=== PATIENT | male | born 1955 | race Caucasian/White ===

== ENCOUNTER 2020-11-08 21:14 | Inpatient (IN) | payer MEDICARE, OTHER ==
[~2020-11-08] VITALS: Ht 172.7 cm; Wt 69.9 kg
[2020-11-08] MEDS ORDERED: ACET-2154 PO (21:34)
[2020-11-08] MEDS ORDERED: IBUP-1955 PO (21:34)
[2020-11-08] MEDS ORDERED: MAG30ORA PO (21:34)
[2020-11-08] MEDS ORDERED: MAGN400O6 PO (21:34)
[2020-11-08] MEDS ORDERED: HYDR50CA PO (21:37)
[2020-11-08] MEDS ORDERED: LORA-258 PO (21:37)
[2020-11-08] MEDS ORDERED: DIPH25CA83 PO (21:37)
--- NOTE | 2020-11-08 21:50 | NUR ---
Patient brought in my EMS from living facility to be medically cleared by ER MD to be admitted to MHU.
--- NOTE | 2020-11-08 22:24 | NUR ---
Patient transferred to MHU in wheelchair at this time. Patient not fully alert and orienntated. All belongings accompanied patient and were documented on belongings list. Stable condition. Medically cleared by Dr. Rush.
[2020-11-08] MEDS ORDERED: ACETAMINOPHEN 325 MG TABLET PO PRN (22:30)
[2020-11-08] MEDS ORDERED: MAGNESIUM HYDROXIDE 30 ML LIQUID UDC PO PRN (22:30)
[2020-11-08] MEDS ORDERED: MAG HYDROX/AL HYDROX/SIMETH 30 ML LIQUID UDC PO PRN (22:30)
[2020-11-08 22:33] VITALS: BP 117/65
--- NOTE | 2020-11-08 23:26 | NUR ---
GPS ADMISSION: Patient is a 65 year old male, brought into the hospital by ambulance from [facility]. Patient states he is homeless. Per hold patient was found on the street by a pedestrian who believed he needed help and called for service. Patient has a history of schizophrenia and has not taken his medication and stated that he needs to go to a mental hospital. Upon face to face evaluation patient is unkept and anxious. Easily agitated and refused to be interviewed. This patient is hearing voices and is preoccupied by internal stimulation. Patient became angry with the staff when his belongings were inventoried. Clinical Admissions Manager offered patient food and a PRN medication but patient is refusing to take any medications. Oriented patient to environment and provided patient with the Advisement and Rights handbook. V.S are stable at this time. Continuing to monitor for safety of patient , staff and peers plus any behavior escalation.
[2020-11-09 07:30] VITALS: BP 110/61
--- NOTE | 2020-11-09 07:33 | NUR ---
Received patient in his room, appears to be disorganized having bizzare behavior , patient responding to internal stimuli, would raised his voice while talking , patient verbalizes " where is my clothes" they should here in my room every body stealing from me, patient on q 15 monitoring,
[2020-11-09 16:00] VITALS: BP 133/71
--- NOTE | 2020-11-09 17:46 | NUR ---
patient shouting and would raised his voice , responding to internal stimuli, patient having delusion , assisted with ADL, spoke with patients sister Mona asking for patients condition, , MD made aware and will follow up,
[2020-11-09 20:00] VITALS: BP 114/65
[2020-11-09] MEDS: TEMAZEPAM 7.5 MG CAPSULE PO PRN (22:08)
--- NOTE | 2020-11-10 02:28 | NUR ---
RECEIVED PATIENT IN BED TALKING TO HIMSELF AND RESPONDING TO INTERNAL STIMULI. WHEN ASKED IF HE HEARS VOICES HE SAID 'YES, BUT THEY ARE TOO MANY IN MY HEAD TO TELL YOU WHAT THEY SAY'. HE ALSO REFUSED HIS MEDS.HE APPEARS DISORGANIZED, IRRITABLE WHEN HIS DEMANDS ARE NOT MET, WITH THE BIZARRE BEHAVIOR OF COMBING HIS HAIR OVER AND OVER AGAIN. HE KEPT GOING BACK AND FORTH TO THE ACTIVITY ROOM WITH HIS CLOTHING IN HAND. HE WAS LATER GIVEN TAB RESTORIL 7.5MG AT 22:10 WITH GOOD EFFECT. SAFE ENVIRONMENT PROVIDED. WILL CONTINUE TO MONITOR.
--- NOTE | 2020-11-10 06:31 | NUR ---
HE SLEPT FOR ONLY 4:15 HOURS. KEPT GETTING OUT OF BED AND WALKING THE HALLWAY. HE HAS HAD A SHOWER.
[2020-11-10 07:30] VITALS: BP 131/69
[2020-11-10] MEDS: risperiDONE 0.5 MG TABLET PO SCH ×4 (08:51→22:22)
--- NOTE | 2020-11-10 09:00 | NUR ---
Pt refused to take his restoril. Explained to patient purpose and side effect of medication and recommendation of psychiatrist. Pt continues to refuse medications.
[2020-11-10 15:34] VITALS: BP 121/65
--- NOTE | 2020-11-10 16:16 | NUR ---
Pt talking to himself disorganize thoughts, difficulty redirecting patient. Pt pacing up and down hallway. pt able to calm down self after getting tired. Pt was seen by physical therapist today. Per Physical therapist pt is ok to be d/c coz pt is independent on ambulation.
[2020-11-10 20:04] VITALS: BP 119/68
[2020-11-10] MEDS: TEMAZEPAM 7.5 MG CAPSULE PO PRN (21:16)
--- NOTE | 2020-11-11 01:37 | NUR ---
Received patient in the room. Bedside area messy, patient disheveled and unkept. Infrastructure Security Architect offered patient the routine PM medications and the patient refused despite education and encouragement. Dr Jefferson came a while later, spoke with the patient and the patient agreed to take his medication. Infrastructure Security Architect noticed patient to be preoccupied with internal stimuli most of the night so far. Not sleeping well . Yelling at times to himself ,but redirectable so far.Continuing to monitor for safety , compliance and behavior escalation.
[2020-11-11 07:30] VITALS: BP 110/66
--- NOTE | 2020-11-11 08:00 | NUR ---
RECEIVED PT AWAKE, ALERT AND ORIENTEDX3. PT IN NO ACUTE DISTRESS. PT PLEASANT WHEN APPROACHED. SAFETY AND COMFORT PROVIDED. WILL CONTINUE TO MONITOR.
[2020-11-11] MEDS: risperiDONE 0.5 MG TABLET PO SCH ×2 (08:27→20:18)
--- NOTE | 2020-11-11 11:27 | NUR ---
KYLE Initial Discharge Plan: Patient is currently homeless and requires a SNF placement upon discharge. Patient's sister Mona ([phone]) is involved in the patient's care and is the patient's payee. Mona does not have DPOA, thought she stated she will be in the process of obtaining it in the near future. KYLE will continue to work with patient, family, and MD to ensure a safe and proper discharge plan.
--- NOTE | 2020-11-11 11:28 | NUR ---
KYLE Family Contact: KYLE spoke with patient's sister Mona ([phone]) and discussed treatment and discharge plan. Mona does not have DPOA however is involved in the patient's care. She would like SNF placement for the patient.
--- NOTE | 2020-11-11 11:33 | NUR ---
Firearms Report: Certified Hearing Instrument Dispenser completed and submitted a [employer] firearms report for 5150 grave disability certifications. A copy of report has been placed in patient chart.
--- NOTE | 2020-11-11 13:01 | NUR ---
[facility] Referral: KYLE faxed patient's referral packet to the following facilities for review and possible placement: [facility] ([phone]) attention to Abdifatah joshua ([phone]) attention to Hui Addendum: 11/11/20 at 1345 by [facility] Patient is accepted at [facility].
--- NOTE | 2020-11-11 14:47 | NUR ---
PT IN NO ACUTE DISTRESS. COMPLIANT WITH CARE. PRESCRIBED MEDICATION GIVEN AND PT TOLERATED IT WELL. SAFETY AND COMFORT PROVIDED. WILL ENDORSE TO INCOMING NURSE.
[2020-11-11 16:00] VITALS: BP 98/65
[2020-11-11 20:37] VITALS: BP 106/62
[2020-11-11] MEDS: TEMAZEPAM 7.5 MG CAPSULE PO PRN (22:39)
[2020-11-11] MEDS: LORAZEPAM 1 MG TABLET PO PRN (22:39)
--- NOTE | 2020-11-12 06:10 | NUR ---
Received Pt pacing the hallway, responding to internal stimuli and talking to himself unintelligibly. Pt grunts and grumbles, and is selectively mute when asked questions. Pt only speak in full sentences when he is asking for food or other items, then disengages and becomes guarded and suspicious. When not rambling, Pt appears to be thought blocking and internally preoccupied. Even though Pt took a shower, he is disheveled, unkempt, malodorous, and wears layers of dirty clothing. Had 2 verbal outbursts with another Pt, but was quickly de-escalated by staff, no other aggressive behavior. Too disorganized in thought process to contract for safety. Compliant with HS medications with prompting and encouragement. Pt was increasingly anxious and restless, Restoril 7.5mg with Ativan 1mg administered with good effect. VS stable, denied pain.
[2020-11-12 07:30] VITALS: BP 90/51
[2020-11-12] MEDS ORDERED: risperiDONE 1 MG TABLET PO SCH (09:00)
[2020-11-12] MEDS: risperiDONE 2 MG TABLET PO SCH ×2 (09:25→20:25)
[2020-11-12 15:14] VITALS: BP 113/64
[2020-11-12 20:19] VITALS: BP 98/58
--- NOTE | 2020-11-12 22:40 | NUR ---
PATIENT IS RECEIVED IN BED AWAKE.PATIENT IS ISOLATIVE/WITHDRAWN. PATIENT HAS BIZARRE AND DISHEVELLED APPEARANCE. PATIENT IS DISHEVELED AND UNKEMPT. PATIENT CONTINUES TO MUMBLE TO SELF AND RESPONDING TO INTERNAL STIMULI. THE PATIENT IS COMPLAINT WITH MEDICATION. NO AGGRESSIVE OR COMBATIVE BEHAVIOR NOTED. NO OUTBURST NOTED WILL REDIRECT. PATIENT REMAINS GUARDED WITH SUSPICIOUS AND PARANOIA NOTED. SAFE ENVIRONMENT PROVIDED AND CLUTTER FREE ENVIRONMENT. BED IN LOWEST POSITION AND BED LOCKED.
[2020-11-13] MEDS: TEMAZEPAM 7.5 MG CAPSULE PO PRN (02:04)
[2020-11-13 07:30] VITALS: BP 117/69
[2020-11-13] MEDS: risperiDONE 2 MG TABLET PO SCH ×2 (09:55→20:47)
[2020-11-13 16:07] VITALS: BP 105/64
[2020-11-13 21:13] VITALS: BP 128/58
[2020-11-13 21:15] VITALS: BP 110/66
--- NOTE | 2020-11-14 06:20 | NUR ---
Patient slept for about 3.15 hours.Continues to have rumbling speech, disorganized thoughts.kept getting out bed and walking the hallway.
[2020-11-14 07:30] VITALS: BP 103/49
[2020-11-14] MEDS: risperiDONE 1 MG TABLET PO SCH ×2 (08:51→20:26)
--- NOTE | 2020-11-14 13:15 | NUR ---
KYLE PC Hearing: Patient had 5250 probable cause hearing today and it was upheld for grave disability.
[2020-11-14 16:44] VITALS: BP 109/51
--- NOTE | 2020-11-14 17:00 | NUR ---
Gps/Double Bass Player- Had been in and out of the activity room, was informed he is being moved to onother room. resirectable, responding to internal stimuli, talking to himself , cooperative with staff.
[2020-11-14 20:00] VITALS: BP 126/61
--- NOTE | 2020-11-15 03:50 | NUR ---
AAO x3 Ambulating in the BR Needs attended. No acute distress. Patient `ambulates to the BR. Continent of bowel and bladder.
[2020-11-15 07:30] VITALS: BP 114/69
[2020-11-15] MEDS: risperiDONE 1 MG TABLET PO SCH ×2 (08:13→20:52)
--- NOTE | 2020-11-15 13:52 | NUR ---
Gps/Hospice Nurse Practitioner- Ate lunch in the dinning room , kept asking for food to eat, noted patient eating other pat's tray after he alredy ate his lunch tray. Discouraged from doing so.
--- NOTE | 2020-11-15 14:43 | NUR ---
SW Individual Therapy Note: SW met with patient to provide brief individual counseling to address patient's presenting problem of neglecting self-care. SW encouraged patient to participate in self-care, bathing, and grooming. Patient has been more visible on the unit and join group actives, however with limited interaction. SW encouraged patient to interact with peers and be more verbally expressive with his thoughts and feelings.
[2020-11-15 16:36] VITALS: BP 120/71
[2020-11-15 20:23] VITALS: BP 114/66
--- NOTE | 2020-11-15 21:42 | NUR ---
Received patient roaming around the unit. No s/s of acute distress noted at this time. Pt continues to rumble and able to make needs known. No agitation or disruptive behavior, responds to internal stimuli, redirectable. Will continue with plan of care.
[2020-11-15] MEDS: TEMAZEPAM 7.5 MG CAPSULE PO PRN (23:31)
--- NOTE | 2020-11-16 05:41 | NUR ---
Patient slept 1.45 hours. Compliant with sleeping aide medication. Pt continued to ramble to self and disorganized thoughts. Redirection attempted multiple times.
[2020-11-16 07:30] VITALS: BP 121/61
[2020-11-16] MEDS: risperiDONE 1 MG TABLET PO SCH ×2 (08:26→20:09)
--- NOTE | 2020-11-16 14:01 | NUR ---
GPS: Nursing Notes: Thought Disorder: Patient is awake and responding to his name, impaired judgment, verbal abusive toward staff and peers at times, loud and angry affect, gets easily irritable when redirected, poor anger management, poor impulse control, resistant with nursing care, threatening staff by shadow boxing in front of staff, unable to formulate a viable plan for self care, continue with treatment plan.
[2020-11-16 16:00] VITALS: BP 123/65
[2020-11-16] MEDS: LORAZEPAM 1 MG TABLET PO PRN (19:40)
[2020-11-16 20:22] VITALS: BP 102/50
[2020-11-16] MEDS: TEMAZEPAM 7.5 MG CAPSULE PO PRN (21:42)
[2020-11-17 07:30] VITALS: BP 111/75
[2020-11-17] MEDS: risperiDONE 1 MG TABLET PO SCH ×2 (08:19→20:10)
[2020-11-17 16:00] VITALS: BP 109/64
[2020-11-17] MEDS: LORAZEPAM 1 MG TABLET PO PRN (19:35)
[2020-11-17 20:09] VITALS: BP 104/62
--- NOTE | 2020-11-18 05:52 | NUR ---
Received Pt pacing the hallways, responding to internal stimuli. Pt mumbles to himself unintelligibly, but denies auditory hallucinations. Appears paranoid of others and does not interact with his peers. Pt speaks non-sensically, is a poor historian, and is unable to hold a meaningful conversation. Pt is compliant with his medications, but does need prompting at times. Poor insight into condition, and unable to verbalize a realistic plan for self care. Cooperative with staff direction, follows unit rules, but remains labile and internally preoccupied. Ativan 1mg administered for increased anxiety and Restoril 7.5mg given for restlessness and insomnia, both effective. VS stable, denies pain.
[2020-11-18 07:30] VITALS: BP 109/70
[2020-11-18] MEDS: risperiDONE 1 MG TABLET PO SCH ×2 (08:16→20:11)
--- NOTE | 2020-11-18 15:14 | NUR ---
SW Individual Therapy Note: SW met with patient to provide brief individual counseling to address patient's presenting problem of neglecting self-care. SW encouraged patient to participate in self-care, bathing, and grooming. Patient has been exhibiting some behavior issues such as agitation and verbally aggressive. Patient is selectively mute and not wanting to engage in a meaningful conversation at this time. SW encouraged patient to interact with peers and be more verbally expressive with his thoughts and feelings.
[2020-11-18 15:17] VITALS: BP 100/66
[2020-11-18] MEDS: LORAZEPAM 1 MG TABLET PO PRN (19:26)
[2020-11-18 20:00] VITALS: BP 100/54
--- NOTE | 2020-11-18 23:00 | NUR ---
Dr Jefferson came in to assess the Pt, and spoke with staff regarding Pt's treatment plan. Changes are as follows to Pt's medication protocol: Risperdal was discontinued, and Depakote 250mg tid, Haldol 5mg tid, Cogentin 1mg tid, and Klonopin 0.25mg tid to be started 11/19/20. Consent signed by Dr Jefferson and Charge Nurse, then faxed to pharmacy. Pt unable to sign due to ongoing psychosis and altered thought process.
[2020-11-19 07:30] VITALS: BP 115/70
[2020-11-19] MEDS: LORAZEPAM 1 MG TABLET PO PRN (08:31)
[2020-11-19] MEDS: BENZTROPINE MESYLATE 1 MG TABLET PO SCH ×3 (08:47→16:41)
[2020-11-19] MEDS: CLONAZEPAM 0.5 MG TABLET PO SCH ×3 (08:47→16:41)
[2020-11-19] MEDS: DIVALPROEX 250 MG TABLET.DR PO SCH ×3 (08:47→16:41)
[2020-11-19] MEDS ORDERED: HALOPERIDOL 5 MG TABLET PO SCH ×2 (09:00)
[2020-11-19] MEDS: FLUPHENAZINE HCL 5 MG TABLET PO SCH ×3 (09:19→20:41)
[2020-11-19 16:00] VITALS: BP 93/59
[2020-11-19 21:14] VITALS: BP 94/50
[2020-11-20 07:56] VITALS: BP 103/42
[2020-11-20] MEDS: BENZTROPINE MESYLATE 1 MG TABLET PO SCH ×3 (08:16→16:36)
[2020-11-20] MEDS: DIVALPROEX 250 MG TABLET.DR PO SCH ×3 (08:16→16:36)
[2020-11-20] MEDS: CLONAZEPAM 0.5 MG TABLET PO SCH ×3 (08:16→16:36)
[2020-11-20] MEDS: FLUPHENAZINE HCL 5 MG TABLET PO SCH ×3 (08:16→20:32)
[2020-11-20] MEDS: LORAZEPAM 1 MG TABLET PO PRN ×2 (13:14→21:34)
--- NOTE | 2020-11-20 15:04 | NUR ---
patient is anxious, restless, continuously pacing in the hallway, and has minimal interaction with staff. patient appears bizarre, unkempt, and disheveled. he is noted to be heavily RTIS. he speaks loudly to himself and unknown others, noted to also be occasionally yelling and screaming, cursing and becoming easily agitated. patient is redirectable and requires frequent reality orientation. patient provided with education about impulse control and maintaining his safety and the safety of others. patient is adherent with medication, no adverse reaction noted. patient is also noted to be hoarding trash, becomes very angry when staff attempts to throw away his trash. patient provided with constant redirection and reality orientation. encouraged to participate in unit milieu.
[2020-11-20 16:00] VITALS: BP 110/49
[2020-11-20 20:37] VITALS: BP 107/61
[2020-11-20] MEDS ORDERED: FLUPHENAZINE HCL 5 MG TABLET PO SCH (21:00)
--- NOTE | 2020-11-20 21:35 | NUR ---
GPS: Pt.is anxious,slightly agitated,talking to self and cursing. Demanding for more snacks despite being given earlier. Re-directed prn. Ativan 1 mg PO given and taken after some persuasion from staff. Will continue to monitor behavior for further escalation.
[2020-11-20] MEDS: TEMAZEPAM 7.5 MG CAPSULE PO PRN (23:12)
[2020-11-21] MEDS: LORAZEPAM 1 MG TABLET PO PRN ×2 (05:10→20:13)
[2020-11-21 07:30] VITALS: BP 97/53
[2020-11-21] MEDS: FLUPHENAZINE HCL 5 MG TABLET PO SCH ×3 (08:39→16:49)
[2020-11-21] MEDS: DIVALPROEX 250 MG TABLET.DR PO SCH ×3 (08:39→16:49)
[2020-11-21] MEDS: BENZTROPINE MESYLATE 1 MG TABLET PO SCH ×3 (08:39→16:49)
[2020-11-21] MEDS: CLONAZEPAM 0.5 MG TABLET PO SCH ×3 (08:39→16:52)
--- NOTE | 2020-11-21 14:39 | NUR ---
KYLE Individual Therapy Note: SW met with patient to provide brief individual counseling to address patient's presenting problem of neglecting self-care. Patient presents psychotic with bizarre behaviors. Patient is mumbling and is unable to express himself appropriately. SW attempted to help patient express his feelings and or concerns, however patient is not willing to engage in a meaningful conversation at this time. SW will remain available for patient for ongoing support.
--- NOTE | 2020-11-21 15:36 | NUR ---
Gps/In Store Representative- Stayed in the dinning room during lunch , medications compliant, had been calmer. Redirectable, making his simple needs known.
[2020-11-21 16:00] VITALS: BP 98/74
--- NOTE | 2020-11-21 16:00 | NUR ---
Gps/2Nd Grade Teacher- Stayed in his room talking to himself loud, garbled speech , word unclear . Continue to be compliant with routine meds. safety reviewed.
[2020-11-21 20:23] VITALS: BP 101/51
[2020-11-22] MEDS: TEMAZEPAM 7.5 MG CAPSULE PO PRN (01:13)
[2020-11-22 07:30] VITALS: BP 110/63
[2020-11-22] MEDS: FLUPHENAZINE HCL 5 MG TABLET PO SCH ×3 (08:08→16:16)
[2020-11-22] MEDS: BENZTROPINE MESYLATE 1 MG TABLET PO SCH ×3 (08:08→16:15)
[2020-11-22] MEDS: CLONAZEPAM 0.5 MG TABLET PO SCH ×3 (08:08→16:15)
[2020-11-22] MEDS: DIVALPROEX 250 MG TABLET.DR PO SCH ×3 (08:09→16:16)
--- NOTE | 2020-11-22 08:22 | NUR ---
KYLE Discharge Note: Patient will be discharged to [facility], [facility] [address], [place] [address] ([phone]) via Ambulance transportation at 11:00AM. KYLE spoke with Hui who stated patient can admit today. Patient is alert and oriented x3 and is aware and agreeable with discharge plans. Patient is unable to plan for self-care but is willing to accept care provided for him at the facility. Patient presents with appropriate mood and congruent affect. Patient denies any suicidal or homicidal ideation. Patient will continue to follow-up with Psychiatrist Dr. Jefferson and Mold Mover Dr. Darden at [facility]. Patients sisterMona ([phone]) is involved in the patients care and is aware and agreeable with discharge plan. Patient signed the homeless waiver upon discharge and a copy was placed in the chart. Homeless resources were provided and include [address] line for shelters and homeless resources. A copy of all resources given to patient was also placed in the chart.
--- NOTE | 2020-11-22 10:30 | NUR ---
Gps/Chemical Pathologist- Patient was well informed of his discharge to [facility] today. All belong packed and will be returned back to patient . patient continued to be cooperative with staff, compliant with his routine medications, redirectable. denies any discomfort , safety reviewed
--- NOTE | 2020-11-22 13:00 | NUR ---
Gps/Flight Test Data Acquisition Technician - Noted patient kept talking to himself , responding to internal stimuli. safety reviewed, redirectable. eating well .
--- NOTE | 2020-11-22 15:25 | NUR ---
Gps/Senior Commissions Analyst- Called Miranda Ramirez, report was given to Nurse Bailey. Patient will be assigned to unit Station ! (yellow zone)supervisor underwriting clerks time remains @ 1600 via ambulance,
[2020-11-22 16:33] VITALS: BP 106/59
== END 2020-11-22 16:45 | DRG 885 ==
LOC: ER 21:14 → GPS 22:10
PROVIDERS: ADMIT Psychiatry & Neurology Psychiatry; ATTEND Internal Medicine
DX: F25.9 Schizoaffective disorder, unspecified (principal); Z20.822 Contact with and (suspected) exposure to COVID-19; F17.210 Nicotine dependence, cigarettes, uncomplicated; Z91.19 Patient's noncompliance with other medical treatment and regimen; M19.90 Unspecified osteoarthritis, unspecified site; R62.7 Adult failure to thrive; F29 Unspecified psychosis not due to a substance or known physiological condition; F20.0 Paranoid schizophrenia; F10.10 Alcohol abuse, uncomplicated; Z68.23 Body mass index [BMI] 23.0-23.9, adult; Z59.0 Homelessness
CPT/HCPCS: 71045; 93005; J3490